=== PATIENT | male | born 1995 | race Caucasian/White ===

== ENCOUNTER 2017-09-01 20:09 | Emergency (ER) | payer OTHER ==
[~2017-09-01] VITALS: Ht 175.3 cm; Wt 54.4 kg
[2017-09-01 20:34] VITALS: BP 132/81
[2017-09-01] MEDS ORDERED: MECLIZINE HCL25 MG ORAL (20:53)
--- NOTE | 2017-09-01 22:14 | Emergency Room Report ---
History of Present Illness General Chief Complaint: Dizziness Source: Patient Present Illness HPI Patient is a 22-year-old male who presented after increased dizziness. Patient reported having episode of dizziness while at home. Patient stated that he had brief episode lasting approximately 15 minutes where he felt the room was spinning. The patient states he smokes marijuana regularly. He denies any recent alcohol use. He denies any severe headache or current dizziness. The patient did this resolve spontaneously. He denied any palpitations or shortness of breath that time.The patient denies a feeling like he was going to pass out. Allergies: Coded Allergies: No Known Allergies (Unverified , 09/01/17) Patient History Past Medical History: see triage record Reviewed Nursing Documentation: PMH: Agreed; PSxH: Agreed Nursing Documentation-PMH Past Medical History: No Stated History Review of Systems All Other Systems: negative except mentioned in HPI Physical Exam Vital Signs Date Time Temp Pulse Resp B/P (MAP) Pulse Ox O2 Delivery O2 Flow Rate FiO2 09/01/17 20:24 98.3 101 18 132/81 98 Room Air 98.2 General Appearance: well appearing, no apparent distress, alert, GCS 15, non- toxic Head: normocephalic, atraumatic ENT: hearing grossly normal, normal voice Neck: full range of motion, supple Respiratory: no respiratory distress, speaking full sentences Cardiovascular #1: normal inspection, normal peripheral pulses, regular rate, rhythm Gastrointestinal: normal inspection, normal bowel sounds, non tender, soft Musculoskeletal: normal inspection, back normal, digits/nails normal, gait/ station normal, no calf tenderness Neurologic: normal inspection, alert, oriented x3, responsive, 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 Differential diagnosis included was not limited to CVA, vertebrobasilar insufficiency, myocardial infarction, benign positional vertigo, labyrinthitis, aspirin overdose among others. The patient has exam consistent with peripheral vertigo likely do to benign positional vertigo. Patient was given oral meclizine prescription. The patient had nonfocal neurologic exam. The patient is advised to follow-up with primary care physician for reevaluation. Last Vital Signs Date Time Temp Pulse Resp B/P (MAP) Pulse Ox O2 Delivery O2 Flow Rate FiO2 09/01/17 21:19 98.2 101 18 132/81 98 Room Air 98.2 Status: improved Disposition: HOME, SELF-CARE Condition: Stable Scripts Meclizine Hcl* (MECLIZINE*) 25 Mg Tablet 25 MG ORAL THREE TIMES A DAY, #30 TAB Prov: Ted Lugo MD 09/01/17 Referrals: Sid Moore MD (PCP) Patient Instructions: Vertigo Ted Lugo MD September 01, 2017 22:14
== END 2017-09-01 21:27 | disposition home or self-care (01) ==
LOC: EMR 20:40
DX: R42 Dizziness and giddiness (principal)
CPT/HCPCS: 99283

== ENCOUNTER 2018-10-12 23:34 | Emergency (ER) | payer OTHER ==
[~2018-10-12] VITALS: Ht 175.3 cm; Wt 56.7 kg
[~2018-10-12 23:34] MED LIST: MECLIZINE HCL25 MG ORAL
--- NOTE | 2018-10-13 | NUR ---
ED Nurse Note: pt walked in, pt states he had anxiety attack this morning and took medication and he got better but states his father wanted him to come to ED to get checked out. pt denies any medical problems at this time, denies cp/sob, denies pain. pt AA&ox4, gcs=15, skin warm and dry, resp even and unlabored on RA, -n/v/d, ambualtes w/ steady gait, will cont monitor.
[2018-10-13 00:25] VITALS: BP 112/67
[2018-10-13 01:14] VITALS: BP 121/75
--- NOTE | 2018-10-13 01:14 | NUR ---
ED Nurse Note: pt cleared to be d/c per ERMD, pt discharge and aftercare instruction provided, pt advised to follow up with pcp or return to ed if changes in condition, pt education done via discussion and handout, pt verbalized understanding and agrees with plan, vss, ambulatory w/ steady gait, left w/ all belongings.
--- NOTE | 2018-10-13 05:52 | Emergency Room Report ---
History of Present Illness General Chief Complaint: General Complaint Source: Patient Present Illness HPI Patient is a 23-year-old male who presented after episode of increased anxiety earlier in the day. Patient reports having prior history of panic attacks. He states that he had been having some problems with his family member. He reports having no auditory or visual hallucinations. He reports smoking marijuana regularly. He states that he has increased stress at home due to criticism from family members. He denies any suicidal thoughts. He states he feels better currently. He reports taking BuSpar as well as another anxiety medication. He states this is citalopram Allergies: Coded Allergies: No Known Allergies (Unverified , 09/01/17) Patient History Past Medical History: see triage record Reviewed Nursing Documentation: PMH: Agreed; PSxH: Agreed Nursing Documentation-PMH History Of Psychiatric Problem: Yes - Anxiety Review of Systems All Other Systems: negative except mentioned in HPI Physical Exam Vital Signs Date Time Temp Pulse Resp B/P (MAP) Pulse Ox O2 Delivery O2 Flow Rate FiO2 10/12/18 23:53 97.5 88 16 112/67 (82) 97 Room Air Sp02 EP Interpretation: reviewed, normal General Appearance: alert/responsive, no apparent distress, GCS 15, non-toxic Head: atraumatic Eyes: PERRL, lids + conjunctiva normal ENT: hearing intact, no angioedema Neck: supple/symm/no masses, no meningismus Respiratory: effort normal, no wheezing, chest symmetrical Cardiovascular: regular rate, rhythm, no edema Cardiovascular #2: 2+ carotid (R), 2+ carotid (L), 2+ dorsalis pedis (R), 2+ dorsalis pedis (L) Gastrointestinal: non-tender, no mass, non-distended, no rebound/guarding, normal bowel sounds Musculoskeletal: gait & station normal, strength & tone normal, normal ROM, non -tender Neurologic: normal inspection, CN II-XII intact, oriented x3, sensory intact, normal speech Psychiatric: normal inspection, judgment & insight normal, memory normal, no suicidal/homicidal ideation Skin: no rash, well hydrated Lymphatic: normal inspection Medical Decision Making Diagnostic Impression: Primary Impression: Anxiety ER Course Patient presented for increased anxiety. Differential diagnosis include was not limited to panic attack, anxiety, substance abuse among others. Patient has a benign exam and does not appear to require any further imaging or laboratory testing at this time. Patient does not appear to have any evidence of cysts suicidal thoughts or response to internal stimuli at this time. He appears to be stable for outpatient management. Patient denies any symptoms which would result in psychiatric hold. Patient appears to be stable for outpatient management does not appear to be a risk to himself. Patient was advised to follow-up with outpatient mental health for further evaluation.Patient advised to return if he had any suicidal thoughts or other concerns. Last Vital Signs Date Time Temp Pulse Resp B/P (MAP) Pulse Ox O2 Delivery O2 Flow Rate FiO2 10/13/18 01:14 97.5 85 16 121/75 97 Room Air Status: improved Disposition: HOME, SELF-CARE Condition: Stable Referrals: [facility],REFERRING (PCP) [facility] Patient Instructions: Panic Attacks Additional Instructions: Follow up with mental health as an outpatient. Return if you feel like harming yourself, or have any concerns. Ted Lugo MD Oct 13, 2018 05:52
== END 2018-10-13 01:40 | disposition home or self-care (01) ==
LOC: EMR 10-13 01:31
DX: F41.9 Anxiety disorder, unspecified (principal)
CPT/HCPCS: 99281